=== PATIENT | male | born 1945 | race Hispanic/Latino ===

== ENCOUNTER → 2023-08-21 | Outpatient (CLI) | payer OTHER | END | disposition home or self-care (01) | LOC: RAH 07:19 | PROVIDERS: ATTEND Family Medicine | DX: K40.90 Unilateral inguinal hernia, without obstruction or gangrene, not specified as recurrent (principal); N28.1 Cyst of kidney, acquired; R10.84 Generalized abdominal pain; R10.30 Lower abdominal pain, unspecified; N18.30 Chronic kidney disease, stage 3 unspecified | CPT/HCPCS: 76700; 76856; 76882 ==

== ENCOUNTER → 2024-08-09 | Outpatient (CLI) | payer OTHER ==
--- NOTE | 2024-08-09 12:34 | HMCIMG ---
Exam Type: LUMBAR SPINE 2-3VWS Clinical Information: OTHER ACUTE POST PROCEDURAL PAIN;Encounter for surgical aftercare following Comparison: None Findings: Exam of the lumbosacral spine demonstrates no evidence of fracture or subluxation. There are moderate spondylitic changes. The facet joints show moderate degenerative changes. The alignment of the spine is normal. The disc spaces are intact. Bone mineralization is normal. Status post posterior fusion and disc fusion at L4-5. 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
== END | disposition home or self-care (01) ==
LOC: RAH 11:19
PROVIDERS: ATTEND Neurological Surgery
DX: M47.816 Spondylosis without myelopathy or radiculopathy, lumbar region (principal); M47.817 Spondylosis without myelopathy or radiculopathy, lumbosacral region; M43.26 Fusion of spine, lumbar region; G89.18 Other acute postprocedural pain; Z48.811 Encounter for surgical aftercare following surgery on the nervous system
CPT/HCPCS: 72100